=== PATIENT | female | born 1945 | race Caucasian/White ===

== ENCOUNTER → 2017-11-29 | Outpatient (CLI) | payer MEDICARE, OTHER | END | disposition home or self-care (01) | LOC: RADCTMAIN 11:47 | PROVIDERS: ATTEND Otolaryngology | DX: K14.9 Disease of tongue, unspecified (principal) | CPT/HCPCS: 82565; 84520 ==

== ENCOUNTER → 2017-11-30 | Outpatient (CLI) | payer MEDICARE, OTHER ==
[~2017-11-30] MED LIST: SODIUM CHLORIDE 0.9% 1,000 ML IV SCH
[2017-11-30 08:22] VITALS: BP 150/69; PULSE 57; RESP 16; TEMP 97.8
[2017-11-30] MEDS: SODIUM CHLORIDE 0.9% 500 ML in EMPTY BAG 1 BAG IV PRN (08:28)
== END | disposition home or self-care (01) ==
LOC: PROCWHC3 08:00
PROVIDERS: ATTEND Otolaryngology
DX: K14.9 Disease of tongue, unspecified (principal)
CPT/HCPCS: 36415; 82565; 96360; 96361

== ENCOUNTER → 2017-11-30 | Outpatient (CLI) | payer MEDICARE, OTHER ==
--- NOTE | 2017-11-30 14:50 | CT ---
EXAMINATION TYPE: CT soft tissue neck w con DATE OF EXAM: 11/30/2017 COMPARISON: None HISTORY: lateral tongue mass CT DLP: 532.8 mGycm CONTRAST: CT scan of the neck is performed with IV Contrast, patient injected with 50 mL of Isovue 300. Contrast enhanced CT of the neck was performed from the skull base through the lung apices. There is a soft tissue mass at the base of the tongue on the right which measures 4.2 x 3.9 cm. Airwa y is displaced from right to left airway luminal narrowing of 3.2 mm. AIRWAY: The remaining portions of the airway appear patent and free of mass. SALIVARY GLANDS: The submandibular and parotid glands are free of mass or inflammatory process. THYROID GLAND: No nodules or masses seen. LYMPH NODES: No adenopathy seen greater than 1cm. LUNG APICES: No nodule or mass is seen. OTHER: Vascular structures are patent. No significant degenerative change of the cervical spine. N o abscess seen. IMPRESSION: 1. Mass at the base of the tongue on the right as discussed related luminal narrowing.
== END | disposition home or self-care (01) ==
LOC: RADCTMAIN 12:54
PROVIDERS: ATTEND Otolaryngology
DX: K14.9 Disease of tongue, unspecified (principal); J98.8 Other specified respiratory disorders
CPT/HCPCS: 82565; 84520; 70491; 96360; 96361; 36415; Q9967

== ENCOUNTER → 2017-12-17 | Outpatient (CLI) | payer MEDICARE, OTHER ==
--- NOTE | 2017-12-18 16:00 | PE ---
EXAMINATION TYPE: PET CT fusion skull to thigh DATE OF EXAM: 12/17/2017 COMPARISON: CT neck 11/30/2017 Prior PET/CT: None HISTORY: Cancer of base of tongue TECHNIQUE: Following the intravenous administration of 14.78 mCi of F-18 FDG, whole body images are performed from the skull base to the midthigh. Images are reviewed on the computer in the coronal, a xial, and sagittal planes. Reconstructed rotating images are created on independent workstation and reviewed on the computer. A localization and attenuation correction CT is performed in conjunction with the PET scan. DLP: 440.91, 102.55 mGycm SCAN: Initial Blood glucose: 87 mg/dL Average Mediastinum SUV: 1.48 Average Liver SUV: 2.19 FINDINGS: NECK: There is marked uptake throughout the tongue. This has marked elevated SUV of 35.24. Some subtle uptake may be within the region of the right salivary gland. Right salivary gland appears more prominent than on the left. This has an SUV value of 3.69. Dedicated head and neck images were obtained: Beam hardening artifact from dental work is through the mandible. Marked uptake through the right tongue mass is evident. This extends to nearly the hypopha rynx. The salivary gland uptake on the right is again evident. There are couple of lymph nodes adjace nt anteriorly without marked increased uptake. SUV example is 1.5. THORAX: No abnormal uptake ABDOMEN: No abnormal uptake PELVIS: No abnormal uptake OSSEOUS STRUCTURES: No abnormal uptake LOCALIZATION CT: Small lymph nodes are at the left submandibular region. There is a 0.9 cm lymph node just inferior anterior to the right salivary gland. A 1.0 cm lymph node is anterior to the right sander ivary gland. Lateral to the salivary gland is 1.1 cm lymph node. These are not hyperintense on the PE T/CT images. Thyroid is slightly heterogenous. The ascending thoracic aorta at the level of the main pulmonary art kalpesh is 3.5 cm. The main pulmonary artery the bifurcation is 3.1 cm. There is some mild fullness in th e right hilar region which is not hyperintense on the PET images. Coronary artery calcifications pres ent. Minimal pericardial effusion is present. There is a 1.2 cm calcification at the inferior pole le ft kidney. There is some fullness within the right adnexal region. Underlying cyst is not excluded. COMPARISON: May be some slight increasing lymphadenopathy size adjacent to the right salivary gland. IMPRESSION: 1. Very marked uptake of radiotracer within the tongue. 2. Suspicious uptake within enlarged right submandibular and submental lymph nodes is not evident. Th ere is however some mild uptake of uncertain significance within the right salivary gland. 3. Distant metastatic lesions are not identified.
== END ==
LOC: RADPETMAIN 12:52
PROVIDERS: ATTEND Radiology Radiation Oncology
DX: C01 Malignant neoplasm of base of tongue (principal); R93.8 Abnormal findings on diagnostic imaging of other specified body structures
CPT/HCPCS: 78815; A9552